=== PATIENT | male | born 1955 | race Caucasian/White ===

== ENCOUNTER 2021-10-04 11:55 | Outpatient (CLI) | payer MEDICARE, BC, SELFPAY ==
[2021-10-04] MEDS: TETRACAINE 0.5% OPHTH 1 DROP EYE-RIGHT ×3 (12:12→13:12)
[2021-10-04] MEDS: BRIMONIDINE TARTRATE 0.2% OPHTH 1 DROP EYE-RIGHT ×2 (12:14→13:23)
[2021-10-04 12:18] VITALS: BP 132/92; PULSE 70; RESP 16; O2SAT 97
--- NOTE | 2021-10-04 15:22 | P.PCN_ITS ---
Procedure Note Will [facility] bill your pro fee for this procedure?: Yes Procedure: SURGEON: Regina Herndon MD PREOPERATIVE DIAGNOSIS: Posterior capsular opacity, right eye POSTOPERATIVE DIAGNOSIS: Posterior capsular opacity, right eye PROCEDURE: YAG laser capsulotomy, right eye ANESTHESIA: Topical. ESTIMATED BLOOD LOSS: None PATHOLOGY SPECIMEN: None COMPLICATIONS: None INDICATIONS: See consult note for details. The risks, benefits and alternatives of the procedure were explained to the patient, who elected to proceed and signed informed consent to do so. PROCEDURE: The patient was brought to the pre-holding area where the right eye was identified as the operative eye. I placed my initials above this eye. The patient received 2 sets of 1 drop of 0.5% tetracaine and 1 drop of 1% tropicamide. They also received 1 drop of 0.2% brimonidine. They received 1 drop of 0.5% tetracaine immediately prior to bringing them back for the procedure. The patient was then brought to the procedure room where the right eye was again identified as the operative eye. A YAG Waldo capsulotomy lens was placed on the eye. The laser was administered using a total number of 10 shots with an energy of 2.4 mJ per shot for a total energy of 24 mJ. The patient tolerated the procedure well. DISPOSITION: The patient was taken back to the pre-holding area and given 1 drop of 0.2% brimonidine in the right eye. They were discharged to home in stable condition. The patient was instructed to call me or go to the emergency department with any sudden change, including dramatic loss of vision, severe pain in the eye or eyebrow region, nausea, or vomiting. The patient was instructed to use the 0.2% brimonidine 1 drop 2 times a day in the right eye for 1 week. The patient will follow up in the clinic in 1-2 weeks.
== END 2021-10-04 13:24 | disposition home or self-care (01) ==
LOC: EYE PRC 11:58
PROVIDERS: PCP Family Medicine; Visit Provider Ophthalmology
DX: H26.9 Unspecified cataract (principal)
CPT/HCPCS: 66821; A9270

== ENCOUNTER 2022-01-16 13:45 | Outpatient (RCR) | payer MEDICARE, BC, SELFPAY | END 2022-04-10 10:36 | disposition home or self-care (01) | PROVIDERS: PCP Family Medicine; Visit Provider Psychiatry & Neurology Neurology | DX: M54.59 Other low back pain (principal); Z51.89 Encounter for other specified aftercare | CPT/HCPCS: 97110; 97161 ==

== ENCOUNTER 2023-07-15 11:29 | Outpatient (CLI) | payer MEDICARE, BC, SELFPAY | END 2023-07-15 11:30 | disposition home or self-care (01) | LOC: CT 11:29 | PROVIDERS: PCP Student in an Organized Health Care Education/Training Program; Visit Provider Internal Medicine Gastroenterology | DX: R10.9 Unspecified abdominal pain (principal); R13.10 Dysphagia, unspecified; K21.00 Gastro-esophageal reflux disease with esophagitis, without bleeding; K22.2 Esophageal obstruction; K44.9 Diaphragmatic hernia without obstruction or gangrene | CPT/HCPCS: 00731; 43239; 43248; 71250; 74176; 88305; J2704 ==

== ENCOUNTER 2023-07-16 19:04 | Emergency (ER) | payer MEDICARE, BC, SELFPAY ==
[2023-07-16 19:33] VITALS: BP 128/80; PULSE 99; RESP 18; TEMP 37; O2SAT 94; BMI 26.6
--- NOTE | 2023-07-16 19:51 | CT_ITS ---
Patient: CARLITOS FIELD Facility:?[facility] Patient ID:?[id number] Site Patient ID:?[id number]. Site :?[id number] Study:?CT-Abdomen/Pelvis W/ 89CC ISOVUE 370-07/16/2023 10:25:07 PM Ordering Physician:MIKE Final Report: INDICATION: RT SIDE ABD PAIN, EGD YESTERDAY, ABD DISTENSION, RUQ/FLANK PAIN. TECHNIQUE: CT abdomen and pelvis acquired with 89 cc Isovue 370 IV contrast. COMPARISON: None. FINDINGS: Lower chest: Bilateral lower lobe consolidation with air bronchograms, right greater than left. Liver: 2.7 cm simple right hepatic cyst. Normal in size and contour. No suspicious masses. Gallbladder and bile ducts: Mild intrahepatic biliary duct dilatation. Normal common bile duct diameter. Hydropic, but otherwise unremarkable gallbladder. Pancreas: Unremarkable. No mass or inflammation. Spleen: Ill-defined 6 mm enhancing focus within the spleen may represent a vascular shunt or flash filling hemangioma. Adrenal glands: Unremarkable. No nodules. Kidneys: Unremarkable. No suspicious masses, stones, or hydronephrosis. GI tract: Small hiatal hernia. There is a moderate-size collection of extraluminal air with surrounding inflammatory changes anterior to the 3rd portion of the duodenum (2/79), which demonstrates mural thickening in this region. Possible luminal injury/site of perforation visualized on series 5, image 89. There is significant inflammatory stranding extending into the right retroperitoneum inferior to the right kidney. No bowel obstruction. Diverticulosis without evidence of diverticulitis.. Normal appendix. Vasculature: Normal caliber abdominal aorta with mild atherosclerotic calcification. Mesenteric arteries are patent. Lymph nodes: No lymphadenopathy. Peritoneum/Abdominal Wall: Mild fluid/inflammatory stranding extending along the right pelvic sidewall into the presacral space. No well-formed drainable fluid collection. Unremarkable abdominal wall. Pelvis: Unremarkable. Bones: Unremarkable for age. 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 No abscess identified. Findings discussed with Dr. Fowler at 9:01 PM PST on 07/16/2023. Please note that all CT scans at this facility use dose modulation, iterative reconstruction, and/or weight-based dosing when appropriate to reduce radiation dose to as low as reasonably achievable. Dictated by Humberto Hsieh MD @ 07/16/2023 11:02:03 PM Signed by:?Humberto Hsieh MD @07/16/2023 11:02:03 PM (Electronic Signature)
[2023-07-16 20:49] LABS: Basophils Percent Auto 0.1 % (0.0-3.0); Hematocrit 47.2 % (37.0-53.0); Hemoglobin* 16.2 gm/dL (13.5-17.5); Immature Granulocytes Pct Auto 0.1 %; Lymphocytes Percent Auto 8.4 % (20-44); Mean Corpuscular HGB Conc 34 gm/dL (32-36); Mean Corpuscular Hemoglobin 30 pg (26-34); Mean Corpuscular Volume 88 fL (80-100); Monocytes Percent Auto 5.2 % (0.0-11.0); Neutrophils Percent Auto 86.2 % (42.0-72.0); Platelet Count* 206 K/uL (140-440); RDW Coefficient of Variation % 12.9 % (11.5-15.5); Red Blood Count 5.38 m/uL (4.30-5.90); White Blood Count* 12.56 K/uL (4.50-11.00)
[2023-07-16] MEDS: 0.9 % SODIUM CHLORIDE 1000 ml 1,000 ML IV (21:04)
[2023-07-16] MEDS: HYDROmorphone 0.5 mg/0.5 ml inj IVP (21:04)
[2023-07-16] MEDS: ONDANSETRON 2 MG/ML inj 4 MG IVP (21:04)
[2023-07-16 21:06] LABS: Slide Review Reflex No
[2023-07-16 21:08] LABS: Albumin* 4.4 g/dL (3.3-5.0); Chloride* 100 mmol/L (96-114); Sodium* 131 mmol/L (135-149)
[2023-07-16 21:09] LABS: Potassium* 4.2 mmol/L (3.6-5.1)
[2023-07-16 21:10] LABS: Creatinine* 1.1 mg/dL (0.5-1.5); Est. Creatinine Clearance* 63.38; Estimated Glomerular Filt Rate 73 ml/min
[2023-07-16 21:11] LABS: Alkaline Phosphatase* 53 U/L (40-150); Anion Gap 10 mEq/L (7-15); Aspartate Amino Transferase* 30 U/L (12-35); Bilirubin Total* 3.2 mg/dL (0.1-1.5); Blood Urea Nitrogen* 41 mg/dL (7-30); Carbon Dioxide* 21 mmol/L (20-32); Lipase* 239 U/L (23-300); Total Protein* 7.7 g/dL (6.0-8.3)
[2023-07-16 21:12] LABS: Alanine Aminotransferase* 25 U/L (4-50); Calcium* 9.2 mg/dL (8.4-10.6); Glucose* 123 mg/dL (60-115)
[2023-07-16 21:14] LABS: C Reactive Protein* 8.2 mg/dL (0.5-1.0)
--- NOTE | 2023-07-16 21:19 | ED.GENADULT ---
HPI - General Adult General Date Seen: 07/16/23 <Marjorie Fowler MD - Last Filed: 07/22/23 16:59> Chief complaint: Flank Pain <MD Ángel Paulino Last Filed: 07/22/23 16:59> Stated complaint: EGD yesterday-extreme pain in R side <MD Ángel Paulino Last Filed: 07/22/23 16:59> Time Seen by Provider: 07/16/23 20:22 <MD Ángel Paulino Last Filed: 07/22/23 16:59> Source: patient, RN notes reviewed and old records reviewed <MD Ángel Paulino Last Filed: 07/22/23 16:59> Mode of arrival: ambulatory <MD Ángel Paulino Last Filed: 07/22/23 16:59> Limitations: no limitations <MD Ángel Paulino Last Filed: 07/22/23 16:59> History of Present Illness HPI narrative: Patient is a 67-year-old male who underwent endoscopy yesterday with Dr. Castañeda. He had some biopsies taken in the stomach and duodenum, he had an esophageal stricture dilated. He says he developed pain in the right upper quadrant area right flank area right after the procedure. Dr. Castañeda advised that he keep an eye on it. It has worsened significantly since then. He notes abdominal distension, he says he is not passing gas. Not had any vomiting, has had some nausea. Denies fevers. Pain is worse with deep breath in his abdomen but he does not have any chest pain or shortness of breath otherwise. <Marjorie Fowler MD - Last Filed: 07/22/23 16:59> Related Data Home medications: Home Medications Medication Instructions Recorded Confirmed rosuvastatin 10 mg tablet mg PO 07/16/23 <MD Ángel Paulino Last Filed: 07/22/23 16:59> Allergies/adverse reactions: Allergies Allergy/AdvReac Type Severity Reaction Status Date / Time No Known Drug Allergies Allergy Verified 07/16/23 22:21 <MD Ángel Paulino Last Filed: 07/22/23 16:59> Review of Systems Status of ROS: Reports: 10 or more systems reviewed and unremarkable except as noted in History and below <Marjorie Fowler MD - Last Filed: 07/22/23 16:59> [facility] Social History: Social History Smoking Status: Unknown if ever smoked <Marjorie Fowler MD - Last Filed: 07/22/23 16:59> Exam Narrative: Exam Narrative: Vital signs as noted above. In general, an alert, uncomfortable appearing male. He is standing in the room, says he is not able to sit down. Head: Normocephalic, atraumatic. Eyes: Pupils are equal reactive. Extraocular movements are full. Conjunctivae are normal. ENT: Mucous membranes are moist. Neck: Supple without lymphadenopathy. Heart: Regular rate and rhythm. No murmur or rub. Lungs: Clear bilaterally. No increased work of breathing, crackles or wheezes. No palpable crepitus. Abdomen: Significantly distended, diffusely tender. Examined standing up. Extremities: Well perfused. No edema. No calf tenderness. Pulses intact. Neurologic: Patient is alert and oriented to person and place. Speech is fluent. Face is symmetric. Moves all extremities equally. Affect: Normal. Skin: Warm and dry. Well perfused. <Marjorie Fowler MD - Last Filed: 07/22/23 16:59> Const: Vital Signs, click to edit/add: Vital Signs - 24 hr 07/17/23 02:17 07/17/23 02:30 07/17/23 02:45 Temperature Pulse Rate 88 88 87 Respiratory Rate Blood Pressure Pulse Oximetry 92 92 91 07/17/23 03:00 07/17/23 03:15 07/17/23 03:30 Temperature Pulse Rate 87 87 85 Respiratory Rate Blood Pressure Pulse Oximetry 92 92 92 07/17/23 03:45 07/17/23 04:00 07/17/23 04:15 Temperature Pulse Rate 90 88 88 Respiratory Rate Blood Pressure Pulse Oximetry 92 92 92 07/17/23 04:30 07/17/23 04:45 07/17/23 05:00 Temperature Pulse Rate 87 89 93 Respiratory Rate Blood Pressure Pulse Oximetry 93 92 92 07/17/23 05:15 07/17/23 05:38 07/17/23 05:45 Temperature Pulse Rate 91 109 H 107 H Respiratory Rate Blood Pressure Pulse Oximetry 92 91 89 07/17/23 06:00 07/17/23 06:15 07/17/23 06:30 Temperature Pulse Rate 102 H 108 H 102 H Respiratory Rate Blood Pressure Pulse Oximetry 91 92 93 07/17/23 06:45 07/17/23 07:00 07/17/23 07:03 Temperature Pulse Rate 100 102 H 91 Respiratory Rate Blood Pressure 129/76 Pulse Oximetry 94 94 93 07/17/23 07:04 07/17/23 07:15 07/17/23 07:30 Temperature Pulse Rate 99 100 98 Respiratory Rate Blood Pressure Pulse Oximetry 92 93 93 07/17/23 07:32 07/17/23 07:45 07/17/23 08:00 Temperature Pulse Rate 97 94 98 Respiratory Rate Blood Pressure 118/87 Pulse Oximetry 93 93 93 07/17/23 08:02 07/17/23 08:15 07/17/23 08:30 Temperature Pulse Rate 95 92 93 Respiratory Rate Blood Pressure 133/83 Pulse Oximetry 93 94 94 07/17/23 08:31 07/17/23 08:45 07/17/23 09:00 Temperature Pulse Rate 90 88 101 H Respiratory Rate Blood Pressure 129/77 Pulse Oximetry 94 94 93 07/17/23 09:02 07/17/23 09:15 07/17/23 09:30 Temperature Pulse Rate 98 101 H 99 Respiratory Rate Blood Pressure 133/80 Pulse Oximetry 93 93 93 07/17/23 09:31 07/17/23 09:45 07/17/23 09:55 Temperature 98.2 F Pulse Rate 99 92 Respiratory Rate 18 Blood Pressure 114/73 Pulse Oximetry 92 92 07/17/23 10:00 07/17/23 10:02 07/17/23 10:34 Temperature Pulse Rate 98 98 113 H Respiratory Rate Blood Pressure 130/78 Pulse Oximetry 91 92 07/17/23 10:35 07/17/23 10:45 07/17/23 11:00 Temperature Pulse Rate 113 H 97 97 Respiratory Rate Blood Pressure Pulse Oximetry 89 90 92 07/17/23 11:05 07/17/23 11:15 07/17/23 11:30 Temperature Pulse Rate 97 97 102 H Respiratory Rate Blood Pressure Pulse Oximetry 94 91 93 07/17/23 11:32 07/17/23 11:45 07/17/23 12:00 Temperature Pulse Rate 101 H 95 102 H Respiratory Rate Blood Pressure 125/84 Pulse Oximetry 92 93 93 07/17/23 12:02 07/17/23 12:15 07/17/23 12:30 Temperature Pulse Rate 102 H 99 93 Respiratory Rate Blood Pressure 132/95 H Pulse Oximetry 92 93 91 07/17/23 12:32 07/17/23 12:45 07/17/23 13:00 Temperature Pulse Rate 95 100 96 Respiratory Rate Blood Pressure 124/90 H Pulse Oximetry 91 92 90 07/17/23 13:02 07/17/23 13:05 07/17/23 13:15 Temperature 98.2 F Pulse Rate 97 109 H Respiratory Rate Blood Pressure 133/69 Pulse Oximetry 90 91 07/17/23 13:30 07/17/23 13:30 07/17/23 13:32 Temperature Pulse Rate 106 H 104 H Respiratory Rate 18 Blood Pressure 142/81 H Pulse Oximetry 94 92 07/17/23 13:45 07/17/23 14:00 07/17/23 14:02 Temperature Pulse Rate 104 H 102 H 103 H Respiratory Rate Blood Pressure 117/91 H Pulse Oximetry 92 92 91 07/17/23 14:15 07/17/23 14:30 07/17/23 14:32 Temperature Pulse Rate 113 H 101 H 101 H Respiratory Rate Blood Pressure 121/88 Pulse Oximetry 93 92 91 07/17/23 14:33 07/17/23 14:45 07/17/23 15:05 Temperature Pulse Rate 101 H 100 Respiratory Rate Blood Pressure 143/89 H Pulse Oximetry 91 90 07/17/23 15:06 07/17/23 15:15 Temperature Pulse Rate 119 H 115 H Respiratory Rate Blood Pressure Pulse Oximetry 89 <Marjorie Fowler MD - Last Filed: 07/22/23 16:59> Vital Signs, click to edit/add: Vital Signs - 24 hr 07/17/23 02:17 07/17/23 02:30 07/17/23 02:45 Temperature Pulse Rate 88 88 87 Respiratory Rate Blood Pressure Pulse Oximetry 92 92 91 07/17/23 03:00 07/17/23 03:15 07/17/23 03:30 Temperature Pulse Rate 87 87 85 Respiratory Rate Blood Pressure Pulse Oximetry 92 92 92 07/17/23 03:45 07/17/23 04:00 07/17/23 04:15 Temperature Pulse Rate 90 88 88 Respiratory Rate Blood Pressure Pulse Oximetry 92 92 92 07/17/23 04:30 07/17/23 04:45 07/17/23 05:00 Temperature Pulse Rate 87 89 93 Respiratory Rate Blood Pressure Pulse Oximetry 93 92 92 07/17/23 05:15 07/17/23 05:38 07/17/23 05:45 Temperature Pulse Rate 91 109 H 107 H Respiratory Rate Blood Pressure Pulse Oximetry 92 91 89 07/17/23 06:00 07/17/23 06:15 07/17/23 06:30 Temperature Pulse Rate 102 H 108 H 102 H Respiratory Rate Blood Pressure Pulse Oximetry 91 92 93 07/17/23 06:45 07/17/23 07:00 07/17/23 07:03 Temperature Pulse Rate 100 102 H 91 Respiratory Rate Blood Pressure 129/76 Pulse Oximetry 94 94 93 07/17/23 07:04 07/17/23 07:15 07/17/23 07:30 Temperature Pulse Rate 99 100 98 Respiratory Rate Blood Pressure Pulse Oximetry 92 93 93 07/17/23 07:32 07/17/23 07:45 07/17/23 08:00 Temperature Pulse Rate 97 94 98 Respiratory Rate Blood Pressure 118/87 Pulse Oximetry 93 93 93 07/17/23 08:02 07/17/23 08:15 07/17/23 08:30 Temperature Pulse Rate 95 92 93 Respiratory Rate Blood Pressure 133/83 Pulse Oximetry 93 94 94 07/17/23 08:31 07/17/23 08:45 07/17/23 09:00 Temperature Pulse Rate 90 88 101 H Respiratory Rate Blood Pressure 129/77 Pulse Oximetry 94 94 93 07/17/23 09:02 07/17/23 09:15 07/17/23 09:30 Temperature Pulse Rate 98 101 H 99 Respiratory Rate Blood Pressure 133/80 Pulse Oximetry 93 93 93 07/17/23 09:31 07/17/23 09:45 07/17/23 09:55 Temperature 98.2 F Pulse Rate 99 92 Respiratory Rate 18 Blood Pressure 114/73 Pulse Oximetry 92 92 07/17/23 10:00 07/17/23 10:02 07/17/23 10:34 Temperature Pulse Rate 98 98 113 H Respiratory Rate Blood Pressure 130/78 Pulse Oximetry 91 92 07/17/23 10:35 07/17/23 10:45 07/17/23 11:00 Temperature Pulse Rate 113 H 97 97 Respiratory Rate Blood Pressure Pulse Oximetry 89 90 92 07/17/23 11:05 07/17/23 11:15 07/17/23 11:30 Temperature Pulse Rate 97 97 102 H Respiratory Rate Blood Pressure Pulse Oximetry 94 91 93 07/17/23 11:32 07/17/23 11:45 07/17/23 12:00 Temperature Pulse Rate 101 H 95 102 H Respiratory Rate Blood Pressure 125/84 Pulse Oximetry 92 93 93 07/17/23 12:02 07/17/23 12:15 07/17/23 12:30 Temperature Pulse Rate 102 H 99 93 Respiratory Rate Blood Pressure 132/95 H Pulse Oximetry 92 93 91 07/17/23 12:32 07/17/23 12:45 07/17/23 13:00 Temperature Pulse Rate 95 100 96 Respiratory Rate Blood Pressure 124/90 H Pulse Oximetry 91 92 90 07/17/23 13:02 07/17/23 13:05 07/17/23 13:15 Temperature 98.2 F Pulse Rate 97 109 H Respiratory Rate Blood Pressure 133/69 Pulse Oximetry 90 91 07/17/23 13:30 07/17/23 13:30 07/17/23 13:32 Temperature Pulse Rate 106 H 104 H Respiratory Rate 18 Blood Pressure 142/81 H Pulse Oximetry 94 92 07/17/23 13:45 07/17/23 14:00 07/17/23 14:02 Temperature Pulse Rate 104 H 102 H 103 H Respiratory Rate Blood Pressure 117/91 H Pulse Oximetry 92 92 91 07/17/23 14:15 07/17/23 14:30 07/17/23 14:32 Temperature Pulse Rate 113 H 101 H 101 H Respiratory Rate Blood Pressure 121/88 Pulse Oximetry 93 92 91 07/17/23 14:33 07/17/23 14:45 07/17/23 15:05 Temperature Pulse Rate 101 H 100 Respiratory Rate Blood Pressure 143/89 H Pulse Oximetry 91 90 07/17/23 15:06 07/17/23 15:15 Temperature Pulse Rate 119 H 115 H Respiratory Rate Blood Pressure Pulse Oximetry 89 <Brandie Roque MD - Last Filed: 07/17/23 23:51> Vital Signs, click to edit/add: Vital Signs - 24 hr 07/17/23 02:17 07/17/23 02:30 07/17/23 02:45 Temperature Pulse Rate 88 88 87 Respiratory Rate Blood Pressure Pulse Oximetry 92 92 91 07/17/23 03:00 07/17/23 03:15 07/17/23 03:30 Temperature Pulse Rate 87 87 85 Respiratory Rate Blood Pressure Pulse Oximetry 92 92 92 07/17/23 03:45 07/17/23 04:00 07/17/23 04:15 Temperature Pulse Rate 90 88 88 Respiratory Rate Blood Pressure Pulse Oximetry 92 92 92 07/17/23 04:30 07/17/23 04:45 07/17/23 05:00 Temperature Pulse Rate 87 89 93 Respiratory Rate Blood Pressure Pulse Oximetry 93 92 92 07/17/23 05:15 07/17/23 05:38 07/17/23 05:45 Temperature Pulse Rate 91 109 H 107 H Respiratory Rate Blood Pressure Pulse Oximetry 92 91 89 07/17/23 06:00 07/17/23 06:15 07/17/23 06:30 Temperature Pulse Rate 102 H 108 H 102 H Respiratory Rate Blood Pressure Pulse Oximetry 91 92 93 07/17/23 06:45 07/17/23 07:00 07/17/23 07:03 Temperature Pulse Rate 100 102 H 91 Respiratory Rate Blood Pressure 129/76 Pulse Oximetry 94 94 93 07/17/23 07:04 07/17/23 07:15 07/17/23 07:30 Temperature Pulse Rate 99 100 98 Respiratory Rate Blood Pressure Pulse Oximetry 92 93 93 07/17/23 07:32 07/17/23 07:45 07/17/23 08:00 Temperature Pulse Rate 97 94 98 Respiratory Rate Blood Pressure 118/87 Pulse Oximetry 93 93 93 07/17/23 08:02 07/17/23 08:15 07/17/23 08:30 Temperature Pulse Rate 95 92 93 Respiratory Rate Blood Pressure 133/83 Pulse Oximetry 93 94 94 07/17/23 08:31 07/17/23 08:45 07/17/23 09:00 Temperature Pulse Rate 90 88 101 H Respiratory Rate Blood Pressure 129/77 Pulse Oximetry 94 94 93 07/17/23 09:02 07/17/23 09:15 07/17/23 09:30 Temperature Pulse Rate 98 101 H 99 Respiratory Rate Blood Pressure 133/80 Pulse Oximetry 93 93 93 07/17/23 09:31 07/17/23 09:45 07/17/23 09:55 Temperature 98.2 F Pulse Rate 99 92 Respiratory Rate 18 Blood Pressure 114/73 Pulse Oximetry 92 92 07/17/23 10:00 07/17/23 10:02 07/17/23 10:34 Temperature Pulse Rate 98 98 113 H Respiratory Rate Blood Pressure 130/78 Pulse Oximetry 91 92 07/17/23 10:35 07/17/23 10:45 07/17/23 11:00 Temperature Pulse Rate 113 H 97 97 Respiratory Rate Blood Pressure Pulse Oximetry 89 90 92 07/17/23 11:05 07/17/23 11:15 07/17/23 11:30 Temperature Pulse Rate 97 97 102 H Respiratory Rate Blood Pressure Pulse Oximetry 94 91 93 07/17/23 11:32 07/17/23 11:45 07/17/23 12:00 Temperature Pulse Rate 101 H 95 102 H Respiratory Rate Blood Pressure 125/84 Pulse Oximetry 92 93 93 07/17/23 12:02 07/17/23 12:15 07/17/23 12:30 Temperature Pulse Rate 102 H 99 93 Respiratory Rate Blood Pressure 132/95 H Pulse Oximetry 92 93 91 07/17/23 12:32 07/17/23 12:45 07/17/23 13:00 Temperature Pulse Rate 95 100 96 Respiratory Rate Blood Pressure 124/90 H Pulse Oximetry 91 92 90 07/17/23 13:02 07/17/23 13:05 07/17/23 13:15 Temperature 98.2 F Pulse Rate 97 109 H Respiratory Rate Blood Pressure 133/69 Pulse Oximetry 90 91 07/17/23 13:30 07/17/23 13:30 07/17/23 13:32 Temperature Pulse Rate 106 H 104 H Respiratory Rate 18 Blood Pressure 142/81 H Pulse Oximetry 94 92 07/17/23 13:45 07/17/23 14:00 07/17/23 14:02 Temperature Pulse Rate 104 H 102 H 103 H Respiratory Rate Blood Pressure 117/91 H Pulse Oximetry 92 92 91 07/17/23 14:15 07/17/23 14:30 07/17/23 14:32 Temperature Pulse Rate 113 H 101 H 101 H Respiratory Rate Blood Pressure 121/88 Pulse Oximetry 93 92 91 07/17/23 14:33 07/17/23 14:45 07/17/23 15:05 Temperature Pulse Rate 101 H 100 Respiratory Rate Blood Pressure 143/89 H Pulse Oximetry 91 90 07/17/23 15:06 07/17/23 15:15 Temperature Pulse Rate 119 H 115 H Respiratory Rate Blood Pressure Pulse Oximetry 89 <Radha Tai MD - Last Filed: 07/17/23 11:19> Documenting provider has reviewed patient's vital signs: yes <Marjorie Fowler MD - Last Filed: 07/22/23 16:59> Course Course ED Course: IV placed, given Dilaudid and Zofran, L of normal saline. CT scan with contrast ordered of the abdomen and pelvis to evaluate for perforation, obstruction, or other abnormality. He is much more comfortable after Dilaudid. He had a white blood cell count 12.5, left shift with 86% neutrophils. Sodium 131, BUN 41 creatinine 1.1. BMP otherwise unremarkable. Lactate of 2, repeat of 2.1. Total bilirubin is elevated at 3.2 but remainder of LFTs are normal, CRP is 8.2. Lipase is 239. He went on to have CT scan of the abdomen and pelvis with IV contrast which by my review showed retroperitoneal fluid, final radiology read as followsFINDINGS: Lower chest: Bilateral lower lobe consolidation with air bronchograms, right greater than left. Liver: 2.7 cm simple right hepatic cyst. Normal in size and contour. No suspicious masses. Gallbladder and bile ducts: Mild intrahepatic biliary duct dilatation. Normal common bile duct diameter. Hydropic, but otherwise unremarkable gallbladder. Pancreas: Unremarkable. No mass or inflammation. Spleen: Ill-defined 6 mm enhancing focus within the spleen may represent a vascular shunt or flash filling hemangioma. Adrenal glands: Unremarkable. No nodules. Kidneys: Unremarkable. No suspicious masses, stones, or hydronephrosis. GI tract: Small hiatal hernia. There is a moderate-size collection of extraluminal air with surrounding inflammatory changes anterior to the 3rd portion of the duodenum (), which demonstrates mural thickening in this region. Possible luminal injury/site of perforation visualized on series 5, image 89. There is significant inflammatory stranding extending into the right retroperitoneum inferior to the right kidney. No bowel obstruction. Diverticulosis without evidence of diverticulitis.. Normal appendix. Vasculature: Normal caliber abdominal aorta with mild atherosclerotic calcification. Mesenteric arteries are patent. Lymph nodes: No lymphadenopathy. Peritoneum/Abdominal Wall: Mild fluid/inflammatory stranding extending along the right pelvic sidewall into the presacral space. No well-formed drainable fluid collection. Unremarkable abdominal wall. Pelvis: Unremarkable. Bones: Unremarkable for age. 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 No abscess identified. Discussed with our general surgeon, she recommends transfer. Patient given Zosyn 3.375 g IV. I talked with Dr. Clemons, on-call with General surgery from [facility]. [facility] are no [facility] available at this time, patient will be on the wait list for [facility] which Dr. Clemons felt was reasonable. An NG tube can be placed if patient seems to be having more nausea, but she did say it was okay to hold off on that for now as he does not have a distended stomach. <Marjorie Fowler MD - Last Filed: 07/22/23 16:59> Reevaluation(s) Time of Reevaluation #1: 01:25 <Brandie Roque MD - Last Filed: 07/17/23 23:51> Reevaluation #1: I assumed care patient. Reviewed orders. Fluconazole ordered, Zosyn reordered for morning. Dilaudid ordered p.r.n.. I gave sign-out to Dr. Sky from the [facility] hospitalist team. He remains on the wait list. He remains hemodynamically stable, afebrile and not requiring any oxygen. Await transfer. May require Interventional Radiology. <Brandie Roque MD - Last Filed: 07/17/23 23:51> Time of Reevaluation #2: 11:18 <Radha Tai MD - Last Filed: 07/17/23 11:19> Reevaluation #2: The hospitalist from [facility] Dr. Ruvalcaba. Reviewed chart/patient history with him. He accepts but will need to await bed placement. <Radha Tai MD - Last Filed: 07/17/23 11:19> Vital Signs Vital signs: Initial Vital Signs Temperature 98.6 F 07/16/23 19:33 Temperature Source Temporal Artery Scan 07/16/23 19:33 Pulse Rate 99 07/16/23 19:33 Pulse Rhythm Regular 07/16/23 19:33 Pulse Strength 3+ Normal 07/16/23 19:33 Respiratory Rate 18 07/16/23 19:33 Blood Pressure 128/80 07/16/23 19:33 Blood Pressure Mean 96 07/16/23 19:33 Blood Pressure Position Standing 07/16/23 19:33 Pulse Oximetry 94 07/16/23 19:33 Oxygen Delivery Method Room Air 07/16/23 19:33 Vital Signs Temperature 98.6 F 07/16/23 19:33 Pulse Rate 99 07/16/23 19:33 Respiratory Rate 18 07/16/23 19:33 Blood Pressure 128/80 07/16/23 19:33 Pulse Oximetry 94 07/16/23 19:33 Oxygen Delivery Method Room Air 07/16/23 19:33 Temperature 98.2 F 07/17/23 13:05 Pulse Rate 115 H 07/17/23 15:15 Respiratory Rate 18 07/17/23 13:30 Blood Pressure 143/89 H 07/17/23 15:05 Pulse Oximetry 89 07/17/23 15:15 Oxygen Delivery Method Room Air 07/16/23 22:40 <Marjorie Fowler MD - Last Filed: 07/22/23 16:59> Initial Vital Signs Temperature 98.6 F 07/16/23 19:33 Temperature Source Temporal Artery Scan 07/16/23 19:33 Pulse Rate 99 07/16/23 19:33 Pulse Rhythm Regular 07/16/23 19:33 Pulse Strength 3+ Normal 07/16/23 19:33 Respiratory Rate 18 07/16/23 19:33 Blood Pressure 128/80 07/16/23 19:33 Blood Pressure Mean 96 07/16/23 19:33 Blood Pressure Position Standing 07/16/23 19:33 Pulse Oximetry 94 07/16/23 19:33 Oxygen Delivery Method Room Air 07/16/23 19:33 Vital Signs Temperature 98.6 F 07/16/23 19:33 Pulse Rate 99 07/16/23 19:33 Respiratory Rate 18 07/16/23 19:33 Blood Pressure 128/80 07/16/23 19:33 Pulse Oximetry 94 07/16/23 19:33 Oxygen Delivery Method Room Air 07/16/23 19:33 Temperature 98.2 F 07/17/23 13:05 Pulse Rate 115 H 07/17/23 15:15 Respiratory Rate 18 07/17/23 13:30 Blood Pressure 143/89 H 07/17/23 15:05 Pulse Oximetry 89 07/17/23 15:15 Oxygen Delivery Method Room Air 07/16/23 22:40 <Brandie Roque MD - Last Filed: 07/17/23 23:51> Initial Vital Signs Temperature 98.6 F 07/16/23 19:33 Temperature Source Temporal Artery Scan 07/16/23 19:33 Pulse Rate 99 07/16/23 19:33 Pulse Rhythm Regular 07/16/23 19:33 Pulse Strength 3+ Normal 07/16/23 19:33 Respiratory Rate 18 07/16/23 19:33 Blood Pressure 128/80 07/16/23 19:33 Blood Pressure Mean 96 07/16/23 19:33 Blood Pressure Position Standing 07/16/23 19:33 Pulse Oximetry 94 07/16/23 19:33 Oxygen Delivery Method Room Air 07/16/23 19:33 Vital Signs Temperature 98.6 F 07/16/23 19:33 Pulse Rate 99 07/16/23 19:33 Respiratory Rate 18 07/16/23 19:33 Blood Pressure 128/80 07/16/23 19:33 Pulse Oximetry 94 07/16/23 19:33 Oxygen Delivery Method Room Air 07/16/23 19:33 Temperature 98.2 F 07/17/23 13:05 Pulse Rate 115 H 07/17/23 15:15 Respiratory Rate 18 07/17/23 13:30 Blood Pressure 143/89 H 07/17/23 15:05 Pulse Oximetry 89 07/17/23 15:15 Oxygen Delivery Method Room Air 07/16/23 22:40 <Radha Tai MD - Last Filed: 07/17/23 11:19> Medications Administered Medications: Discontinued Medications Generic Name Dose Route Start Last Admin Trade Name Freq PRN Reason Stop Dose Admin Hydromorphone HCl 0.5 mg 07/16/23 20:26 07/16/23 21:04 Hydromorphone 0.5 Mg/0.5 Ml Inj IVP 07/16/23 20:27 0.5 mg ONCE ONE Administration Hydromorphone HCl 0.5 mg 07/16/23 23:56 07/17/23 15:39 Hydromorphone 0.5 Mg/0.5 Ml Inj IVP 0.5 mg Q1H PRN Administration Pain Hydromorphone HCl 1 mg 07/17/23 12:55 07/17/23 12:55 Hydromorphone 0.5 Mg/0.5 Ml Inj IVP 07/17/23 12:56 1 mg ONCE ONE Administration Sodium Chloride 1,000 mls @ 1,000 mls/hr 07/16/23 20:30 07/16/23 22:00 0.9 % Sodium Chloride 1000 Ml IV 07/16/23 21:29 Infused .Q1H MELINDA Infusion Piperacillin Sod/Tazobactam 100 mls @ 100 mls/hr 07/16/23 23:20 07/17/23 01:12 Sod 3.375 gm/ Sodium Chloride IVPB 07/16/23 23:21 Infused ONCE ONE Infusion Lactated Ringer's 1,000 mls @ 75 mls/hr 07/16/23 23:25 07/17/23 14:18 Lactated Ringers 1000 Ml IV Infused .[id number] MELINDA Infusion Fluconazole 200 mg in 100 mls @ 100 mls/hr 07/16/23 23:56 07/17/23 02:23 Fluconazole In Nacl IVPB Infused Q24H MELINDA Infusion Piperacillin Sod/Tazobactam 100 mls @ 200 mls/hr 07/17/23 06:00 07/17/23 15:12 Sod 3.375 gm/ Sodium Chloride IVPB 200 mls/hr Q6H MELINDA Administration Sodium Chloride 1,000 mls @ 6,000 mls/hr 07/17/23 13:00 07/17/23 13:31 0.9 % Sodium Chloride 1000 Ml IV 07/17/23 13:09 Infused .Q10M MELINDA Infusion Dextrose/Sodium Chloride 1,000 mls @ 75 mls/hr 07/17/23 14:18 07/17/23 14:40 5 % Dextrose/0.45% Sod Chlor IV 75 mls/hr .[id number] MELINDA Administration Ondansetron HCl 4 mg 07/16/23 20:26 07/16/23 21:04 Ondansetron 2 Mg/Ml Inj IVP 07/16/23 20:27 4 mg ONCE ONE Administration <Marjorie Fowler MD - Last Filed: 07/22/23 16:59> Discontinued Medications Generic Name Dose Route Start Last Admin Trade Name Freq PRN Reason Stop Dose Admin Hydromorphone HCl 0.5 mg 07/16/23 20:26 07/16/23 21:04 Hydromorphone 0.5 Mg/0.5 Ml Inj IVP 07/16/23 20:27 0.5 mg ONCE ONE Administration Hydromorphone HCl 0.5 mg 07/16/23 23:56 07/17/23 15:39 Hydromorphone 0.5 Mg/0.5 Ml Inj IVP 0.5 mg Q1H PRN Administration Pain Hydromorphone HCl 1 mg 07/17/23 12:55 07/17/23 12:55 Hydromorphone 0.5 Mg/0.5 Ml Inj IVP 07/17/23 12:56 1 mg ONCE ONE Administration Sodium Chloride 1,000 mls @ 1,000 mls/hr 07/16/23 20:30 07/16/23 22:00 0.9 % Sodium Chloride 1000 Ml IV 07/16/23 21:29 Infused .Q1H MELINDA Infusion Piperacillin Sod/Tazobactam 100 mls @ 100 mls/hr 07/16/23 23:20 07/17/23 01:12 Sod 3.375 gm/ Sodium Chloride IVPB 07/16/23 23:21 Infused ONCE ONE Infusion Lactated Ringer's 1,000 mls @ 75 mls/hr 07/16/23 23:25 07/17/23 14:18 Lactated Ringers 1000 Ml IV Infused .[id number] MELINDA Infusion Fluconazole 200 mg in 100 mls @ 100 mls/hr 07/16/23 23:56 07/17/23 02:23 Fluconazole In Nacl IVPB Infused Q24H MELINDA Infusion Piperacillin Sod/Tazobactam 100 mls @ 200 mls/hr 07/17/23 06:00 07/17/23 15:12 Sod 3.375 gm/ Sodium Chloride IVPB 200 mls/hr Q6H MELINDA Administration Sodium Chloride 1,000 mls @ 6,000 mls/hr 07/17/23 13:00 07/17/23 13:31 0.9 % Sodium Chloride 1000 Ml IV 07/17/23 13:09 Infused .Q10M MELINDA Infusion Dextrose/Sodium Chloride 1,000 mls @ 75 mls/hr 07/17/23 14:18 07/17/23 14:40 5 % Dextrose/0.45% Sod Chlor IV 75 mls/hr .[id number] MELINDA Administration Ondansetron HCl 4 mg 07/16/23 20:26 07/16/23 21:04 Ondansetron 2 Mg/Ml Inj IVP 07/16/23 20:27 4 mg ONCE ONE Administration <Brandie Roque MD - Last Filed: 07/17/23 23:51> Discontinued Medications Generic Name Dose Route Start Last Admin Trade Name Freq PRN Reason Stop Dose Admin Hydromorphone HCl 0.5 mg 07/16/23 20:26 07/16/23 21:04 Hydromorphone 0.5 Mg/0.5 Ml Inj IVP 07/16/23 20:27 0.5 mg ONCE ONE Administration Hydromorphone HCl 0.5 mg 07/16/23 23:56 07/17/23 15:39 Hydromorphone 0.5 Mg/0.5 Ml Inj IVP 0.5 mg Q1H PRN Administration Pain Hydromorphone HCl 1 mg 07/17/23 12:55 07/17/23 12:55 Hydromorphone 0.5 Mg/0.5 Ml Inj IVP 07/17/23 12:56 1 mg ONCE ONE Administration Sodium Chloride 1,000 mls @ 1,000 mls/hr 07/16/23 20:30 07/16/23 22:00 0.9 % Sodium Chloride 1000 Ml IV 07/16/23 21:29 Infused .Q1H MELINDA Infusion Piperacillin Sod/Tazobactam 100 mls @ 100 mls/hr 07/16/23 23:20 07/17/23 01:12 Sod 3.375 gm/ Sodium Chloride IVPB 07/16/23 23:21 Infused ONCE ONE Infusion Lactated Ringer's 1,000 mls @ 75 mls/hr 07/16/23 23:25 07/17/23 14:18 Lactated Ringers 1000 Ml IV Infused .[id number] MELINDA Infusion Fluconazole 200 mg in 100 mls @ 100 mls/hr 07/16/23 23:56 07/17/23 02:23 Fluconazole In Nacl IVPB Infused Q24H MELINDA Infusion Piperacillin Sod/Tazobactam 100 mls @ 200 mls/hr 07/17/23 06:00 07/17/23 15:12 Sod 3.375 gm/ Sodium Chloride IVPB 200 mls/hr Q6H MELINDA Administration Sodium Chloride 1,000 mls @ 6,000 mls/hr 07/17/23 13:00 07/17/23 13:31 0.9 % Sodium Chloride 1000 Ml IV 07/17/23 13:09 Infused .Q10M MELINDA Infusion Dextrose/Sodium Chloride 1,000 mls @ 75 mls/hr 07/17/23 14:18 07/17/23 14:40 5 % Dextrose/0.45% Sod Chlor IV 75 mls/hr .[id number] MELINDA Administration Ondansetron HCl 4 mg 07/16/23 20:26 07/16/23 21:04 Ondansetron 2 Mg/Ml Inj IVP 07/16/23 20:27 4 mg ONCE ONE Administration <Radha Tai MD - Last Filed: 07/17/23 11:19> Medical Decision Making Lab Data Labs: Lab Results 07/16/23 07/16/23 07/16/23 Range/Units 20:36 20:36 20:36 WBC 12.56 H (4.50-11.00) K/uL RBC 5.38 (4.30-5.90) m/uL Hgb 16.2 (13.5-17.5) gm/dL Hct 47.2 (37.0-53.0) % MCV 88 (80-100) fL MCH 30 (26-34) pg MCHC 34 (32-36) gm/dL RDW Coeff of Ally 12.9 (11.5-15.5) % Plt Count 206 (140-440) K/uL Neut % (Auto) 86.2 H (42.0-72.0) % Lymph % (Auto) 8.4 L (20-44) % Levy % (Auto) 5.2 (0.0-11.0) % Eos % (Auto) 0.0 (0.0-7.0) % Baso % (Auto) 0.1 (0.0-3.0) % Neut # (Auto) 10.80 H (1.7-7.0) K/uL Lymph # (Auto) 1.10 (0.90-2.90) K/uL Levy # (Auto) 0.70 (0.00-0.90) K/UL Eos # (Auto) 0.00 (0.00-0.50) K/uL Baso # (Auto) 0.00 (0.00-0.30) K/uL Abs Immat Gran (auto) 0.00 (0.00-0.30) K/uL Imm/Tot Granulo (auto) 0.1 % Sodium 131 L (135-149) mmol/L Potassium 4.2 (3.6-5.1) mmol/L Chloride 100 (96-114) mmol/L Carbon Dioxide 21 (20-32) mmol/L Anion Gap 10 (7-15) mEq/L BUN 41 H (7-30) mg/dL Creatinine 1.1 (0.5-1.5) mg/dL Estimated Creat Clear 63.38 Estimated GFR 73 ml/min Glucose 123 H (60-115) mg/dL Lactate 2.0 H (0.5-1.9) mmol/L Calcium 9.2 (8.4-10.6) mg/dL Total Bilirubin Cancelled 3.2 H Direct Bilirubin Cancelled 0.0 AST Cancelled ALT Alkaline Phosphatase C-Reactive Protein (0.5-1.0) mg/dL Total Protein Albumin Lipase Urine Color (Yellow) Urine Appearance (Clear) Urine pH (5.0-8.5) Ur Specific [place] (1.000-1.030) Urine Protein (Negative) Urine Glucose (UA) (Negative) Urine Ketones (Negative) Urine Blood (Negative) Urine Nitrite (Negative) Urine Bilirubin (Negative) Urine Urobilinogen (0.2-1.0) Ur Leukocyte Esterase (Negative) Urine RBC (0-2) Urine WBC (0-5) Ur Squamous Epith Cells (None-Few) Urine Bacteria (None) 07/16/23 07/16/23 07/16/23 Range/Units 20:36 20:36 20:36 WBC (4.50-11.00) K/uL RBC (4.30-5.90) m/uL Hgb (13.5-17.5) gm/dL Hct (37.0-53.0) % MCV (80-100) fL MCH (26-34) pg MCHC (32-36) gm/dL RDW Coeff of Ally (11.5-15.5) % Plt Count (140-440) K/uL Neut % (Auto) (42.0-72.0) % Lymph % (Auto) (20-44) % Levy % (Auto) (0.0-11.0) % Eos % (Auto) (0.0-7.0) % Baso % (Auto) (0.0-3.0) % Neut # (Auto) (1.7-7.0) K/uL Lymph # (Auto) (0.90-2.90) K/uL Levy # (Auto) (0.00-0.90) K/UL Eos # (Auto) (0.00-0.50) K/uL Baso # (Auto) (0.00-0.30) K/uL Abs Immat Gran (auto) (0.00-0.30) K/uL Imm/Tot Granulo (auto) % Sodium (135-149) mmol/L Potassium (3.6-5.1) mmol/L Chloride (96-114) mmol/L Carbon Dioxide (20-32) mmol/L Anion Gap (7-15) mEq/L BUN (7-30) mg/dL Creatinine (0.5-1.5) mg/dL Estimated Creat Clear Estimated GFR ml/min Glucose (60-115) mg/dL Lactate (0.5-1.9) mmol/L Calcium (8.4-10.6) mg/dL Total Bilirubin Direct Bilirubin AST 30 ALT Cancelled 25 Alkaline Phosphatase Cancelled 53 C-Reactive Protein 8.2 H (0.5-1.0) mg/dL Total Protein Cancelled Albumin Lipase Urine Color (Yellow) Urine Appearance (Clear) Urine pH (5.0-8.5) Ur Specific [place] (1.000-1.030) Urine Protein (Negative) Urine Glucose (UA) (Negative) Urine Ketones (Negative) Urine Blood (Negative) Urine Nitrite (Negative) Urine Bilirubin (Negative) Urine Urobilinogen (0.2-1.0) Ur Leukocyte Esterase (Negative) Urine RBC (0-2) Urine WBC (0-5) Ur Squamous Epith Cells (None-Few) Urine Bacteria (None) 07/16/23 07/16/23 07/16/23 Range/Units 20:36 20:36 20:36 WBC (4.50-11.00) K/uL RBC (4.30-5.90) m/uL Hgb (13.5-17.5) gm/dL Hct (37.0-53.0) % MCV (80-100) fL MCH (26-34) pg MCHC (32-36) gm/dL RDW Coeff of Ally (11.5-15.5) % Plt Count (140-440) K/uL Neut % (Auto) (42.0-72.0) % Lymph % (Auto) (20-44) % Levy % (Auto) (0.0-11.0) % Eos % (Auto) (0.0-7.0) % Baso % (Auto) (0.0-3.0) % Neut # (Auto) (1.7-7.0) K/uL Lymph # (Auto) (0.90-2.90) K/uL Levy # (Auto) (0.00-0.90) K/UL Eos # (Auto) (0.00-0.50) K/uL Baso # (Auto) (0.00-0.30) K/uL Abs Immat Gran (auto) (0.00-0.30) K/uL Imm/Tot Granulo (auto) % Sodium (135-149) mmol/L Potassium (3.6-5.1) mmol/L Chloride (96-114) mmol/L Carbon Dioxide (20-32) mmol/L Anion Gap (7-15) mEq/L BUN (7-30) mg/dL Creatinine (0.5-1.5) mg/dL Estimated Creat Clear Estimated GFR ml/min Glucose (60-115) mg/dL Lactate (0.5-1.9) mmol/L Calcium (8.4-10.6) mg/dL Total Bilirubin Direct Bilirubin AST ALT Alkaline Phosphatase C-Reactive Protein (0.5-1.0) mg/dL Total Protein 7.7 Albumin Cancelled 4.4 Lipase Cancelled 239 Urine Color (Yellow) Urine Appearance (Clear) Urine pH (5.0-8.5) Ur Specific [place] (1.000-1.030) Urine Protein (Negative) Urine Glucose (UA) (Negative) Urine Ketones (Negative) Urine Blood (Negative) Urine Nitrite (Negative) Urine Bilirubin (Negative) Urine Urobilinogen (0.2-1.0) Ur Leukocyte Esterase (Negative) Urine RBC (0-2) Urine WBC (0-5) Ur Squamous Epith Cells (None-Few) Urine Bacteria (None) 07/16/23 07/17/23 Range/Units 22:45 01:30 WBC (4.50-11.00) K/uL RBC (4.30-5.90) m/uL Hgb (13.5-17.5) gm/dL Hct (37.0-53.0) % MCV (80-100) fL MCH (26-34) pg MCHC (32-36) gm/dL RDW Coeff of Ally (11.5-15.5) % Plt Count (140-440) K/uL Neut % (Auto) (42.0-72.0) % Lymph % (Auto) (20-44) % Levy % (Auto) (0.0-11.0) % Eos % (Auto) (0.0-7.0) % Baso % (Auto) (0.0-3.0) % Neut # (Auto) (1.7-7.0) K/uL Lymph # (Auto) (0.90-2.90) K/uL Levy # (Auto) (0.00-0.90) K/UL Eos # (Auto) (0.00-0.50) K/uL Baso # (Auto) (0.00-0.30) K/uL Abs Immat Gran (auto) (0.00-0.30) K/uL Imm/Tot Granulo (auto) % Sodium (135-149) mmol/L Potassium (3.6-5.1) mmol/L Chloride (96-114) mmol/L Carbon Dioxide (20-32) mmol/L Anion Gap (7-15) mEq/L BUN (7-30) mg/dL Creatinine (0.5-1.5) mg/dL Estimated Creat Clear Estimated GFR ml/min Glucose (60-115) mg/dL Lactate 2.1 H (0.5-1.9) mmol/L Calcium (8.4-10.6) mg/dL Total Bilirubin Direct Bilirubin AST ALT Alkaline Phosphatase C-Reactive Protein (0.5-1.0) mg/dL Total Protein Albumin Lipase Urine Color Yellow (Yellow) Urine Appearance Clear (Clear) Urine pH 5.5 (5.0-8.5) Ur Specific [place] 1.015 (1.000-1.030) Urine Protein 1+ A (Negative) Urine Glucose (UA) Negative (Negative) Urine Ketones Negative (Negative) Urine Blood 1+ A (Negative) Urine Nitrite Negative (Negative) Urine Bilirubin Negative (Negative) Urine Urobilinogen 0.2 (0.2-1.0) Ur Leukocyte Esterase Negative (Negative) Urine RBC 2-5 A (0-2) Urine WBC 0-2 (0-5) Ur Squamous Epith Cells Few (None-Few) Urine Bacteria Few A (None) <Marjorie Fowler MD - Last Filed: 07/22/23 16:59> Lab Results 07/16/23 07/16/23 07/16/23 Range/Units 20:36 20:36 20:36 WBC 12.56 H (4.50-11.00) K/uL RBC 5.38 (4.30-5.90) m/uL Hgb 16.2 (13.5-17.5) gm/dL Hct 47.2 (37.0-53.0) % MCV 88 (80-100) fL MCH 30 (26-34) pg MCHC 34 (32-36) gm/dL RDW Coeff of Ally 12.9 (11.5-15.5) % Plt Count 206 (140-440) K/uL Neut % (Auto) 86.2 H (42.0-72.0) % Lymph % (Auto) 8.4 L (20-44) % Levy % (Auto) 5.2 (0.0-11.0) % Eos % (Auto) 0.0 (0.0-7.0) % Baso % (Auto) 0.1 (0.0-3.0) % Neut # (Auto) 10.80 H (1.7-7.0) K/uL Lymph # (Auto) 1.10 (0.90-2.90) K/uL Levy # (Auto) 0.70 (0.00-0.90) K/UL Eos # (Auto) 0.00 (0.00-0.50) K/uL Baso # (Auto) 0.00 (0.00-0.30) K/uL Abs Immat Gran (auto) 0.00 (0.00-0.30) K/uL Imm/Tot Granulo (auto) 0.1 % Sodium 131 L (135-149) mmol/L Potassium 4.2 (3.6-5.1) mmol/L Chloride 100 (96-114) mmol/L Carbon Dioxide 21 (20-32) mmol/L Anion Gap 10 (7-15) mEq/L BUN 41 H (7-30) mg/dL Creatinine 1.1 (0.5-1.5) mg/dL Estimated Creat Clear 63.38 Estimated GFR 73 ml/min Glucose 123 H (60-115) mg/dL Lactate 2.0 H (0.5-1.9) mmol/L Calcium 9.2 (8.4-10.6) mg/dL Total Bilirubin Cancelled 3.2 H Direct Bilirubin Cancelled 0.0 AST Cancelled ALT Alkaline Phosphatase C-Reactive Protein (0.5-1.0) mg/dL Total Protein Albumin Lipase Urine Color (Yellow) Urine Appearance (Clear) Urine pH (5.0-8.5) Ur Specific [place] (1.000-1.030) Urine Protein (Negative) Urine Glucose (UA) (Negative) Urine Ketones (Negative) Urine Blood (Negative) Urine Nitrite (Negative) Urine Bilirubin (Negative) Urine Urobilinogen (0.2-1.0) Ur Leukocyte Esterase (Negative) Urine RBC (0-2) Urine WBC (0-5) Ur Squamous Epith Cells (None-Few) Urine Bacteria (None) 07/16/23 07/16/23 07/16/23 Range/Units 20:36 20:36 20:36 WBC (4.50-11.00) K/uL RBC (4.30-5.90) m/uL Hgb (13.5-17.5) gm/dL Hct (37.0-53.0) % MCV (80-100) fL MCH (26-34) pg MCHC (32-36) gm/dL RDW Coeff of Ally (11.5-15.5) % Plt Count (140-440) K/uL Neut % (Auto) (42.0-72.0) % Lymph % (Auto) (20-44) % Levy % (Auto) (0.0-11.0) % Eos % (Auto) (0.0-7.0) % Baso % (Auto) (0.0-3.0) % Neut # (Auto) (1.7-7.0) K/uL Lymph # (Auto) (0.90-2.90) K/uL Levy # (Auto) (0.00-0.90) K/UL Eos # (Auto) (0.00-0.50) K/uL Baso # (Auto) (0.00-0.30) K/uL Abs Immat Gran (auto) (0.00-0.30) K/uL Imm/Tot Granulo (auto) % Sodium (135-149) mmol/L Potassium (3.6-5.1) mmol/L Chloride (96-114) mmol/L Carbon Dioxide (20-32) mmol/L Anion Gap (7-15) mEq/L BUN (7-30) mg/dL Creatinine (0.5-1.5) mg/dL Estimated Creat Clear Estimated GFR ml/min Glucose (60-115) mg/dL Lactate (0.5-1.9) mmol/L Calcium (8.4-10.6) mg/dL Total Bilirubin Direct Bilirubin AST 30 ALT Cancelled 25 Alkaline Phosphatase Cancelled 53 C-Reactive Protein 8.2 H (0.5-1.0) mg/dL Total Protein Cancelled Albumin Lipase Urine Color (Yellow) Urine Appearance (Clear) Urine pH (5.0-8.5) Ur Specific [place] (1.000-1.030) Urine Protein (Negative) Urine Glucose (UA) (Negative) Urine Ketones (Negative) Urine Blood (Negative) Urine Nitrite (Negative) Urine Bilirubin (Negative) Urine Urobilinogen (0.2-1.0) Ur Leukocyte Esterase (Negative) Urine RBC (0-2) Urine WBC (0-5) Ur Squamous Epith Cells (None-Few) Urine Bacteria (None) 07/16/23 07/16/23 07/16/23 Range/Units 20:36 20:36 20:36 WBC (4.50-11.00) K/uL RBC (4.30-5.90) m/uL Hgb (13.5-17.5) gm/dL Hct (37.0-53.0) % MCV (80-100) fL MCH (26-34) pg MCHC (32-36) gm/dL RDW Coeff of Ally (11.5-15.5) % Plt Count (140-440) K/uL Neut % (Auto) (42.0-72.0) % Lymph % (Auto) (20-44) % Levy % (Auto) (0.0-11.0) % Eos % (Auto) (0.0-7.0) % Baso % (Auto) (0.0-3.0) % Neut # (Auto) (1.7-7.0) K/uL Lymph # (Auto) (0.90-2.90) K/uL Levy # (Auto) (0.00-0.90) K/UL Eos # (Auto) (0.00-0.50) K/uL Baso # (Auto) (0.00-0.30) K/uL Abs Immat Gran (auto) (0.00-0.30) K/uL Imm/Tot Granulo (auto) % Sodium (135-149) mmol/L Potassium (3.6-5.1) mmol/L Chloride (96-114) mmol/L Carbon Dioxide (20-32) mmol/L Anion Gap (7-15) mEq/L BUN (7-30) mg/dL Creatinine (0.5-1.5) mg/dL Estimated Creat Clear Estimated GFR ml/min Glucose (60-115) mg/dL Lactate (0.5-1.9) mmol/L Calcium (8.4-10.6) mg/dL Total Bilirubin Direct Bilirubin AST ALT Alkaline Phosphatase C-Reactive Protein (0.5-1.0) mg/dL Total Protein 7.7 Albumin Cancelled 4.4 Lipase Cancelled 239 Urine Color (Yellow) Urine Appearance (Clear) Urine pH (5.0-8.5) Ur Specific [place] (1.000-1.030) Urine Protein (Negative) Urine Glucose (UA) (Negative) Urine Ketones (Negative) Urine Blood (Negative) Urine Nitrite (Negative) Urine Bilirubin (Negative) Urine Urobilinogen (0.2-1.0) Ur Leukocyte Esterase (Negative) Urine RBC (0-2) Urine WBC (0-5) Ur Squamous Epith Cells (None-Few) Urine Bacteria (None) 07/16/23 07/17/23 Range/Units 22:45 01:30 WBC (4.50-11.00) K/uL RBC (4.30-5.90) m/uL Hgb (13.5-17.5) gm/dL Hct (37.0-53.0) % MCV (80-100) fL MCH (26-34) pg MCHC (32-36) gm/dL RDW Coeff of Ally (11.5-15.5) % Plt Count (140-440) K/uL Neut % (Auto) (42.0-72.0) % Lymph % (Auto) (20-44) % Levy % (Auto) (0.0-11.0) % Eos % (Auto) (0.0-7.0) % Baso % (Auto) (0.0-3.0) % Neut # (Auto) (1.7-7.0) K/uL Lymph # (Auto) (0.90-2.90) K/uL Levy # (Auto) (0.00-0.90) K/UL Eos # (Auto) (0.00-0.50) K/uL Baso # (Auto) (0.00-0.30) K/uL Abs Immat Gran (auto) (0.00-0.30) K/uL Imm/Tot Granulo (auto) % Sodium (135-149) mmol/L Potassium (3.6-5.1) mmol/L Chloride (96-114) mmol/L Carbon Dioxide (20-32) mmol/L Anion Gap (7-15) mEq/L BUN (7-30) mg/dL Creatinine (0.5-1.5) mg/dL Estimated Creat Clear Estimated GFR ml/min Glucose (60-115) mg/dL Lactate 2.1 H (0.5-1.9) mmol/L Calcium (8.4-10.6) mg/dL Total Bilirubin Direct Bilirubin AST ALT Alkaline Phosphatase C-Reactive Protein (0.5-1.0) mg/dL Total Protein Albumin Lipase Urine Color Yellow (Yellow) Urine Appearance Clear (Clear) Urine pH 5.5 (5.0-8.5) Ur Specific [place] 1.015 (1.000-1.030) Urine Protein 1+ A (Negative) Urine Glucose (UA) Negative (Negative) Urine Ketones Negative (Negative) Urine Blood 1+ A (Negative) Urine Nitrite Negative (Negative) Urine Bilirubin Negative (Negative) Urine Urobilinogen 0.2 (0.2-1.0) Ur Leukocyte Esterase Negative (Negative) Urine RBC 2-5 A (0-2) Urine WBC 0-2 (0-5) Ur Squamous Epith Cells Few (None-Few) Urine Bacteria Few A (None) <Brandie Roque MD - Last Filed: 07/17/23 23:51> Lab Results 07/16/23 07/16/23 07/16/23 Range/Units 20:36 20:36 20:36 WBC 12.56 H (4.50-11.00) K/uL RBC 5.38 (4.30-5.90) m/uL Hgb 16.2 (13.5-17.5) gm/dL Hct 47.2 (37.0-53.0) % MCV 88 (80-100) fL MCH 30 (26-34) pg MCHC 34 (32-36) gm/dL RDW Coeff of Ally 12.9 (11.5-15.5) % Plt Count 206 (140-440) K/uL Neut % (Auto) 86.2 H (42.0-72.0) % Lymph % (Auto) 8.4 L (20-44) % Levy % (Auto) 5.2 (0.0-11.0) % Eos % (Auto) 0.0 (0.0-7.0) % Baso % (Auto) 0.1 (0.0-3.0) % Neut # (Auto) 10.80 H (1.7-7.0) K/uL Lymph # (Auto) 1.10 (0.90-2.90) K/uL Levy # (Auto) 0.70 (0.00-0.90) K/UL Eos # (Auto) 0.00 (0.00-0.50) K/uL Baso # (Auto) 0.00 (0.00-0.30) K/uL Abs Immat Gran (auto) 0.00 (0.00-0.30) K/uL Imm/Tot Granulo (auto) 0.1 % Sodium 131 L (135-149) mmol/L Potassium 4.2 (3.6-5.1) mmol/L Chloride 100 (96-114) mmol/L Carbon Dioxide 21 (20-32) mmol/L Anion Gap 10 (7-15) mEq/L BUN 41 H (7-30) mg/dL Creatinine 1.1 (0.5-1.5) mg/dL Estimated Creat Clear 63.38 Estimated GFR 73 ml/min Glucose 123 H (60-115) mg/dL Lactate 2.0 H (0.5-1.9) mmol/L Calcium 9.2 (8.4-10.6) mg/dL Total Bilirubin Cancelled 3.2 H Direct Bilirubin Cancelled 0.0 AST Cancelled ALT Alkaline Phosphatase C-Reactive Protein (0.5-1.0) mg/dL Total Protein Albumin Lipase Urine Color (Yellow) Urine Appearance (Clear) Urine pH (5.0-8.5) Ur Specific [place] (1.000-1.030) Urine Protein (Negative) Urine Glucose (UA) (Negative) Urine Ketones (Negative) Urine Blood (Negative) Urine Nitrite (Negative) Urine Bilirubin (Negative) Urine Urobilinogen (0.2-1.0) Ur Leukocyte Esterase (Negative) Urine RBC (0-2) Urine WBC (0-5) Ur Squamous Epith Cells (None-Few) Urine Bacteria (None) 07/16/23 07/16/23 07/16/23 Range/Units 20:36 20:36 20:36 WBC (4.50-11.00) K/uL RBC (4.30-5.90) m/uL Hgb (13.5-17.5) gm/dL Hct (37.0-53.0) % MCV (80-100) fL MCH (26-34) pg MCHC (32-36) gm/dL RDW Coeff of Ally (11.5-15.5) % Plt Count (140-440) K/uL Neut % (Auto) (42.0-72.0) % Lymph % (Auto) (20-44) % Levy % (Auto) (0.0-11.0) % Eos % (Auto) (0.0-7.0) % Baso % (Auto) (0.0-3.0) % Neut # (Auto) (1.7-7.0) K/uL Lymph # (Auto) (0.90-2.90) K/uL Levy # (Auto) (0.00-0.90) K/UL Eos # (Auto) (0.00-0.50) K/uL Baso # (Auto) (0.00-0.30) K/uL Abs Immat Gran (auto) (0.00-0.30) K/uL Imm/Tot Granulo (auto) % Sodium (135-149) mmol/L Potassium (3.6-5.1) mmol/L Chloride (96-114) mmol/L Carbon Dioxide (20-32) mmol/L Anion Gap (7-15) mEq/L BUN (7-30) mg/dL Creatinine (0.5-1.5) mg/dL Estimated Creat Clear Estimated GFR ml/min Glucose (60-115) mg/dL Lactate (0.5-1.9) mmol/L Calcium (8.4-10.6) mg/dL Total Bilirubin Direct Bilirubin AST 30 ALT Cancelled 25 Alkaline Phosphatase Cancelled 53 C-Reactive Protein 8.2 H (0.5-1.0) mg/dL Total Protein Cancelled Albumin Lipase Urine Color (Yellow) Urine Appearance (Clear) Urine pH (5.0-8.5) Ur Specific [place] (1.000-1.030) Urine Protein (Negative) Urine Glucose (UA) (Negative) Urine Ketones (Negative) Urine Blood (Negative) Urine Nitrite (Negative) Urine Bilirubin (Negative) Urine Urobilinogen (0.2-1.0) Ur Leukocyte Esterase (Negative) Urine RBC (0-2) Urine WBC (0-5) Ur Squamous Epith Cells (None-Few) Urine Bacteria (None) 07/16/23 07/16/23 07/16/23 Range/Units 20:36 20:36 20:36 WBC (4.50-11.00) K/uL RBC (4.30-5.90) m/uL Hgb (13.5-17.5) gm/dL Hct (37.0-53.0) % MCV (80-100) fL MCH (26-34) pg MCHC (32-36) gm/dL RDW Coeff of Ally (11.5-15.5) % Plt Count (140-440) K/uL Neut % (Auto) (42.0-72.0) % Lymph % (Auto) (20-44) % Levy % (Auto) (0.0-11.0) % Eos % (Auto) (0.0-7.0) % Baso % (Auto) (0.0-3.0) % Neut # (Auto) (1.7-7.0) K/uL Lymph # (Auto) (0.90-2.90) K/uL Levy # (Auto) (0.00-0.90) K/UL Eos # (Auto) (0.00-0.50) K/uL Baso # (Auto) (0.00-0.30) K/uL Abs Immat Gran (auto) (0.00-0.30) K/uL Imm/Tot Granulo (auto) % Sodium (135-149) mmol/L Potassium (3.6-5.1) mmol/L Chloride (96-114) mmol/L Carbon Dioxide (20-32) mmol/L Anion Gap (7-15) mEq/L BUN (7-30) mg/dL Creatinine (0.5-1.5) mg/dL Estimated Creat Clear Estimated GFR ml/min Glucose (60-115) mg/dL Lactate (0.5-1.9) mmol/L Calcium (8.4-10.6) mg/dL Total Bilirubin Direct Bilirubin AST ALT Alkaline Phosphatase C-Reactive Protein (0.5-1.0) mg/dL Total Protein 7.7 Albumin Cancelled 4.4 Lipase Cancelled 239 Urine Color (Yellow) Urine Appearance (Clear) Urine pH (5.0-8.5) Ur Specific [place] (1.000-1.030) Urine Protein (Negative) Urine Glucose (UA) (Negative) Urine Ketones (Negative) Urine Blood (Negative) Urine Nitrite (Negative) Urine Bilirubin (Negative) Urine Urobilinogen (0.2-1.0) Ur Leukocyte Esterase (Negative) Urine RBC (0-2) Urine WBC (0-5) Ur Squamous Epith Cells (None-Few) Urine Bacteria (None) 07/16/23 07/17/23 Range/Units 22:45 01:30 WBC (4.50-11.00) K/uL RBC (4.30-5.90) m/uL Hgb (13.5-17.5) gm/dL Hct (37.0-53.0) % MCV (80-100) fL MCH (26-34) pg MCHC (32-36) gm/dL RDW Coeff of Ally (11.5-15.5) % Plt Count (140-440) K/uL Neut % (Auto) (42.0-72.0) % Lymph % (Auto) (20-44) % Levy % (Auto) (0.0-11.0) % Eos % (Auto) (0.0-7.0) % Baso % (Auto) (0.0-3.0) % Neut # (Auto) (1.7-7.0) K/uL Lymph # (Auto) (0.90-2.90) K/uL Levy # (Auto) (0.00-0.90) K/UL Eos # (Auto) (0.00-0.50) K/uL Baso # (Auto) (0.00-0.30) K/uL Abs Immat Gran (auto) (0.00-0.30) K/uL Imm/Tot Granulo (auto) % Sodium (135-149) mmol/L Potassium (3.6-5.1) mmol/L Chloride (96-114) mmol/L Carbon Dioxide (20-32) mmol/L Anion Gap (7-15) mEq/L BUN (7-30) mg/dL Creatinine (0.5-1.5) mg/dL Estimated Creat Clear Estimated GFR ml/min Glucose (60-115) mg/dL Lactate 2.1 H (0.5-1.9) mmol/L Calcium (8.4-10.6) mg/dL Total Bilirubin Direct Bilirubin AST ALT Alkaline Phosphatase C-Reactive Protein (0.5-1.0) mg/dL Total Protein Albumin Lipase Urine Color Yellow (Yellow) Urine Appearance Clear (Clear) Urine pH 5.5 (5.0-8.5) Ur Specific [place] 1.015 (1.000-1.030) Urine Protein 1+ A (Negative) Urine Glucose (UA) Negative (Negative) Urine Ketones Negative (Negative) Urine Blood 1+ A (Negative) Urine Nitrite Negative (Negative) Urine Bilirubin Negative (Negative) Urine Urobilinogen 0.2 (0.2-1.0) Ur Leukocyte Esterase Negative (Negative) Urine RBC 2-5 A (0-2) Urine WBC 0-2 (0-5) Ur Squamous Epith Cells Few (None-Few) Urine Bacteria Few A (None) <Radha Tai MD - Last Filed: 07/17/23 11:19> Discharge Plan Discharge Clinical Impression: Duodenal perforation <Marjorie Fowler MD - Last Filed: 07/22/23 16:59> Patient Disposition: Xfer Dilip Moreno <Marjorie Fowler MD - Last Filed: 07/22/23 16:59> Condition: Stable <Marjorie Fowler MD - Last Filed: 07/22/23 16:59> Prescriptions: No Action rosuvastatin 10 mg tablet PO <Marjorie Fowler MD - Last Filed: 07/22/23 16:59> Stand Alone Forms: MyHealth Info Instructions <Marjorie Fowler MD - Last Filed: 07/22/23 16:59>
[2023-07-16 21:39] VITALS: BP 132/81; PULSE 89; O2SAT 92
[2023-07-16 22:40] VITALS: BP 126/80; PULSE 84; O2SAT 92
[2023-07-16 22:50] LABS: Lactate Sepsis 2 Hour 2.1 mmol/L (0.5-1.9)
[2023-07-16] MEDS: PIPERACILLIN/TAZOBACTAM 3.375 GM in 0.9 % SODIUM CHLORIDE Mini-bag 100 ML IVPB (23:44)
[2023-07-17] VITALS (73 sets, daily range): BP systolic 114–143; BP diastolic 69–95; PULSE 85–119; RESP 18; TEMP 36.8; O2SAT 89–94
[2023-07-17] MEDS: LACTATED RINGERS 1000 ML 1,000 ML 75 ML IV (00:21)
[2023-07-17] MEDS: HYDROmorphone 0.5 mg/0.5 ml inj IVP ×6 (00:45→15:39)
[2023-07-17 01:38] LABS: Appearance Urine Clear (Clear); Bilirubin Urine Negative (Negative); Blood Urine 1+ (Negative); Color Urine Yellow (Yellow); Glucose Urine Negative (Negative); Ketones Urine Negative (Negative); Leukocyte Esterase Urine Negative (Negative); Nitrite Urine Negative (Negative); Protein Urine 1+ (Negative); Specific Gravity Urine 1.015 (1.000-1.030); Urobilinogen Urine 0.2 (0.2-1.0); pH Urine 5.5 (5.0-8.5)
[2023-07-17 01:48] LABS: Bacteria Urine Few; Squamous Epithelial Cell Urine Few (None-Few); WBC Urine 0-2 (0-5)
[2023-07-17] MEDS: PIPERACILLIN/TAZOBACTAM 3.375 GM in 0.9 % SODIUM CHLORIDE Mini-bag 100 ML IVPB ×2 (09:05→15:12)
[2023-07-17] MEDS: 0.9 % SODIUM CHLORIDE 1000 ml 1,000 ML 6000 ML IV (12:55)
[2023-07-17] MEDS: HYDROmorphone 0.5 mg/0.5 ml inj 1 MG IVP (12:55)
[2023-07-17] MEDS: 5 % DEXTROSE/0.45% SOD CHLOR 1,000 ML 75 ML IV (14:40)
== END 2023-07-17 15:47 | disposition home or self-care (01) ==
PROVIDERS: Emergency Medicine; Family Medicine; Emergency Provider Family Medicine; PCP Student in an Organized Health Care Education/Training Program
DX: K26.1 Acute duodenal ulcer with perforation (principal)
CPT/HCPCS: 36415; 74177; 80048; 80076; 81001; 83605; 83690; 85025; 86140; 87086; 96365; 96366; 96375; 96376; 99284; J1170; J1450; J2405; J2543; J7030; J7120; Q9967; S5010

== ENCOUNTER 2023-07-17 15:24 | Outpatient (CLI) | payer MEDICARE, BC, SELFPAY | END 2023-07-17 15:25 | disposition home or self-care (01) | LOC: AMB 07-21 06:44 | PROVIDERS: PCP Student in an Organized Health Care Education/Training Program; Visit Provider Family Medicine | DX: K63.1 Perforation of intestine (nontraumatic) (principal) | CPT/HCPCS: A0425; A0434 ==

== ENCOUNTER 2024-11-24 18:45 | Outpatient (CLI) | payer MEDICARE, BC, SELFPAY | END 2024-11-24 18:46 | disposition home or self-care (01) | LOC: NFLDREF 11-30 14:14 | PROVIDERS: PCP Student in an Organized Health Care Education/Training Program; Referring Provider Student in an Organized Health Care Education/Training Program; Visit Provider Nurse Practitioner Family | DX: N30.01 Acute cystitis with hematuria (principal) | CPT/HCPCS: 87086 ==